=== PATIENT | male | born 1965 | race Hispanic/Latino ===

== ENCOUNTER 2021-10-01 08:00 | Day surgery (SDC) | payer OTHER ==
[2021-09-25 11:08] LABS: EOSINOPHILS % (AUTO) 2.2 % (0.0-8.0); HEMATOCRIT 38.8 % (42-54); LYMPHOCYTES % (AUTO) 27.9 % (21.0-51.0); MEAN CORPUSCULAR HEMOGLOBIN 31.7 pg (27.0-33.0); MEAN CORPUSCULAR HGB CONC 34.3 g/dL (32.0-36.0); MEAN CORPUSCULAR VOLUME 92.4 fL (79-99); MONOCYTES % (AUTO) 9.6 % (3.0-13.0); NEUTROPHILS % (AUTO) 59.1 % (40.0-77.0); PLATELET COUNT (AUTO) 209 K/uL (130-400); WHITE BLOOD COUNT (AUTO) 5.9 K/uL (4.8-10.8)
[2021-09-25 11:18] LABS: CREATININE 0.8 mg/dL (0.5-1.5); POTASSIUM 4.4 mmol/L (3.5-5.1)
[2021-09-25 11:26] LABS: INR 0.98 (0.85-1.15); PROTHROMBIN TIME 10.7 SEC (9.6-11.6)
[2021-09-25 11:27] LABS: PARTIAL THROMBOPLASTIN TIME 27.9 SEC (26.3-35.5)
[2021-09-30 09:37] VITALS: BP 102/84
[~2021-10-01] VITALS: Ht 165.1 cm; Wt 77.2 kg
[2021-10-01] VITALS (16 sets, daily range): BP systolic 130–154; BP diastolic 71–100
[~2021-10-01 08:00] MED LIST: CEFAZOLIN SODIUM 1 GM VIAL IVP ONE; METF-446 PO
[2021-10-01] MEDS ORDERED: 0.9%NACL 1000ML 1,000 ML IV ONE (08:13)
[2021-10-01] MEDS ORDERED: BUPIVACAINE/PF 0.25% 30ML VIAL IJ ONE (08:44)
[2021-10-01] MEDS ORDERED: BACITRACIN 28.4 GM OINT TP ONE (08:44)
[2021-10-01] MEDS ORDERED: PROPOFOL 10 MG/ML 20ML VIAL IV ONE (10:44)
[2021-10-01] MEDS ORDERED: MIDAZOLAM HCL 1 MG/ML 2ML VIAL ONE (10:44)
[2021-10-01] MEDS ORDERED: FENTANYL CITRATE PF 50 MCG/1 ML 2ML VIAL ONE (10:44)
[2021-10-01] MEDS ORDERED: ROCURONIUM 10MG/1ML SYR 10 MG/ML ML ONE (10:44)
[2021-10-01] MEDS ORDERED: LIDOCAINE PF 100MG/5ML (2%) SYRINGE 5ML ONE (10:44)
[2021-10-01] MEDS ORDERED: EPHEDRINE SULFATE 50 MG/ML AMPULE ONE (10:57)
[2021-10-01] MEDS ORDERED: DEXAMETHASONE SOD PHOSPHATE 10MG/ML 1ML VIAL ONE (11:48)
== END 2021-10-01 14:00 | disposition home or self-care (01) ==
LOC: DAH 08:00
PROVIDERS: ATTEND Urology
DX: N47.1 Phimosis (principal); N50.82 Scrotal pain; R10.2 Pelvic and perineal pain; N40.0 Benign prostatic hyperplasia without lower urinary tract symptoms; E11.9 Type 2 diabetes mellitus without complications; Z79.01 Long term (current) use of anticoagulants; Z79.899 Other long term (current) drug therapy; Z79.84 Long term (current) use of oral hypoglycemic drugs
CPT/HCPCS: 36415; 54161; 80048; 82948 ×2; 85025; 85610; 85730; 87635; 93005; A4606; A6260; C9803; J0690; J1100; J2001; J2250; J2704; J3010; J3490 ×2; J7030